=== PATIENT | male | born 1965 | race Caucasian/White ===

== ENCOUNTER → 2021-02-12 | Day surgery (SDC) | payer MEDICARE ==
[2021-02-12] VITALS (10 sets, daily range): BP systolic 141–168; BP diastolic 79–85
[~2021-02-12] VITALS: Ht 188 cm; Wt 137.4 kg
[~2021-02-12] MED LIST: NO HOME MEDS; acetaminophen 325mg tablet PO PRN; dexamethasone sod phosphate 10mg/ml inj IV STA; diphenhydrAMINE 25mg capsule PO ONE
--- NOTE | 2021-02-12 12:31 | NUR ---
PATIENT HAS ARRIVED TO FLOOR FOR PLATLET TRANSFUSION AND THEN D/C PER DR ESPINOSA AND DR VENTURA.
--- NOTE | 2021-02-12 12:50 | NUR ---
SCANNER NOT WORKING ON COMPUTER, REQUESTED REPAIR BUT MEDS NEED TO BE GIVEN NOW
--- NOTE | 2021-02-12 14:20 | NUR ---
PLATLETS TRANSFUSED W/ NO S/S OF COMPLICATIONS. CBC REDRAWN
[2021-02-12 15:05] LABS: BASOPHILS % (AUTO) 0.7 % (0-1); EOSINOPHILS % (AUTO) 2.5 % (0-6); HEMATOCRIT 37.8 % (42.0-52.0); HEMOGLOBIN 13.2 g/dl (14.0-17.9); LYMPHOCYTES # (AUTO) 0.3 X10'3 (1.1-4.8); LYMPHOCYTES % (AUTO) 14.8 % (21-51); MEAN CORPUSCULAR HEMOGLOBIN 32.5 PG (27.0-31.0); MEAN CORPUSCULAR HGB CONC 34.8 g/dL (33.0-36.5); MEAN CORPUSCULAR VOLUME 93.5 FL (78-98); MEAN PLATELET VOLUME 8.7 FL (7.4-10.4); MONOCYTES # (AUTO) 0.1 X10'3 (0-0.9); MONOCYTES % (AUTO) 4.8 % (2-12); NEUTROPHILS # (AUTO) 1.4 X10'3 (1.8-7.7); NEUTROPHILS % (AUTO) 77.2 % (42-75); RED BLOOD COUNT 4.05 X10'6 (4.70-6.10); RED CELL DISTRIBUTION WIDTH 14.8 % (11.5-14.5); WHITE BLOOD COUNT 1.8 X10'3 (4.5-11.0)
[2021-02-12 15:20] LABS: PLATELET COUNT 40 X10'3 (140-440)
--- NOTE | 2021-02-12 15:41 | NUR ---
PLATLETS UNCHANGED FROM 40 RANGE OF PRIOR CHECK. MD AWARE. 2ND UNIT OF PLATELETS INFUSING.
[2021-02-12 16:03] LABS: PLATELET ESTIMATE DECREASED; SCHISTOCYTES FEW; TOTAL CELLS COUNTED 100
--- NOTE | 2021-02-12 16:31 | NUR ---
2nd unit platlets complete. i spoke with dr mitchell who is aware of platlets count and stated he can go home and come back in am and we can give more platelets if needed. no reactions observed from transfusion, v/s stable patient piv d/c and he was d/c home with all belongings
== END | disposition home or self-care (01) ==
LOC: SSTAY O 12:01
PROVIDERS: ATTEND Internal Medicine Hematology & Oncology
DX: Z01.83 Encounter for blood typing (principal); Z79.899 Other long term (current) drug therapy
CPT/HCPCS: 36415; 36430; 83036; 85025; J1100; P9035; Q0163; 85007; 86885; 86900; 86901